=== PATIENT | female | born 1950 | race Caucasian/White ===

== ENCOUNTER 2023-04-01 10:56 | Outpatient (CLI) | payer MEDICARE, BC | END 2023-04-01 10:57 | disposition home or self-care (01) | LOC: CSHRAD 10:56 | PROVIDERS: ATTEND Neurological Surgery | DX: M50.30 Other cervical disc degeneration, unspecified cervical region (principal); Z98.890 Other specified postprocedural states | CPT/HCPCS: 72040 ==

== ENCOUNTER 2023-07-07 09:28 | Outpatient (CLI) | payer MEDICARE, BC | END 2023-07-07 09:29 | disposition home or self-care (01) | LOC: CSHRAD 09:28 | PROVIDERS: ATTEND Neurological Surgery | DX: M47.12 Other spondylosis with myelopathy, cervical region (principal); Z98.890 Other specified postprocedural states | CPT/HCPCS: 72040 ==